=== PATIENT | female | born 1945 | race Caucasian/White ===

== ENCOUNTER 2021-02-02 00:57 | Inpatient (IN) ==
[2021-02-02] MEDS ORDERED: Ipratropium/Albuterol Neb 3 ML IH ONE (01:17)
[2021-02-02 01:44] LABS: Basophils # 0.1 K/mcL (0.0-0.2); Basophils % 0.4 %; Eosinophils % 7.3 %; Hemoglobin 13.3 g/dL (11.5-15.4); Immature Granulocytes % 0.4 % (0-4); Lymphocytes # 1.9 K/mcL (0.6-4.6); Lymphocytes % 13.3 %; Mean Corpuscular HGB Conc 32.4 g/dL (31.6-35.5); Mean Corpuscular Hemoglobin 29.2 pg (28.0-33.3); Mean Corpuscular Volume 89.9 fL (83.0-100.0); Mean Platelet Volume 9.9 fL (9.4-12.4); Monocytes # 0.8 K/mcL (0.0-1.3); Monocytes % 5.8 %; Neutrophils # 10.3 K/mcL (1.6-8.9); Platelet Count 250 K/mcL (140-400); Red Blood Count 4.56 M/mcL (3.82-4.97); Red Cell Distribution Width 13.9 % (11.5-14.5); Segmented Neutrophils % 72.8 %; White Blood Count 14.2 K/mcL (4.3-11.1)
[2021-02-02 02:07] LABS: BUN/Creatinine Ratio 16 (6-26); Blood Urea Nitrogen 17 mg/dL (8-23); Calcium 9.5 mg/dL (8.6-10.3); Carbon Dioxide 26 mEq/L (23-29); Chloride 101 mEq/L (98-107); Glucose 229 mg/dL (70-105); Osmolality,Calculated 297 (280-300); Potassium 3.6 mEq/L (3.5-5.1); Sodium 139 mEq/L (136-145); eGFR For African Americans > 60 (> 60); eGFR For Non-African Americans 51 (> 60)
[2021-02-02 02:08] LABS: Troponin I < 0.03 ng/mL (< 0.04)
[2021-02-02 02:58] LABS: VBG HCO3 27 mEq/L (21-27); VBG PCO2 47 mmHg (41-51); VBG PH 7.36 pH Units (7.32-7.42); VBG PO2 90 mmHg (25-50)
[2021-02-02 03:22] LABS: Influenza A PCR Negative (Negative); Influenza B PCR Negative (Negative); Resp. Syncytial Virus PCR Negative (Negative)
[2021-02-02 03:23] LABS: SARS-CoV-2 by PCR (In House) Negative (Negative)
[2021-02-02] MEDS ORDERED: Azithromycin 500 MG in 0.9 % Sodium Chloride 250 ML IVPB ONE (04:04)
[2021-02-02] MEDS ORDERED: cefTRIAXone 1,000 MG in 0.9 % Sodium Chloride Mini Bag 100 ML IVPB ONE (04:04)
[2021-02-02] MEDS ORDERED: methylPREDNISolone 125 MG/2 ML VIAL IVP ONE (04:04)
[2021-02-02] MEDS ORDERED: Ondansetron 4 MG/2 ML VIAL IVP PRN (05:14)
[2021-02-02] MEDS ORDERED: Naloxone 0.4 MG/ML INJ IVP PRN (05:14)
[2021-02-02] MEDS ORDERED: Dextrose Gel 15 GM/37.5 ML TUBE PO PRN ×2 (06:31)
[2021-02-02] MEDS ORDERED: D5% in Water 1,000 ML IVC PRN (06:31)
[2021-02-02] MEDS ORDERED: *HR* Dextrose 50 % in Water (Vial) 50 ML VIAL IVP PRN (06:31)
[2021-02-02] MEDS ORDERED: Insulin LISPRO 300 UNITS/3 ML VIAL SUBQ SCH (07:00)
[2021-02-02] MEDS ORDERED: Ipratropium/Albuterol Neb 3 ML IH SCH (08:00)
[2021-02-02] MEDS ORDERED: FLUTICASONE PROPIONATE IH SCH (09:00)
[2021-02-02] MEDS ORDERED: NON-FORMULARY MEDICATION 1 EACH EACH (Tiotropium Bromide [Spiriva Handihaler] 18 MCG Cap.W IH SCH (09:00)
[2021-02-02] MEDS: MethylPREDNISolone 40 MG/ML VIAL IVP SCH ×2 (10:12→19:40)
[2021-02-02] MEDS: tiZANidine 4 MG TABLET PO SCH ×2 (10:13→19:40)
[2021-02-02] MEDS: Famotidine 20 MG TABLET PO SCH ×2 (10:13→19:39)
[2021-02-02] MEDS: FLUoxetine 20 MG CAPSULE PO SCH (10:13)
[2021-02-02] MEDS: hydroCHLOROthiazide 25 MG TABLET PO SCH (10:14)
[2021-02-02] MEDS: Gabapentin 300 MG CAPSULE PO SCH ×2 (10:14→19:40)
[2021-02-02] MEDS ORDERED: Ipratropium/Albuterol Neb 3 ML IH PRN (10:30)
[2021-02-02] MEDS ORDERED: MethylPREDNISolone 40 MG/ML VIAL IVP SCH (12:00)
[2021-02-02] MEDS: Tiotropium 10 INH DOSE IH SCH (12:14)
[2021-02-02] MEDS: Insulin LISPRO 300 UNITS/3 ML VIAL SUBQ SCH ×2 (13:50→17:38)
[2021-02-02] MEDS: Ipratropium/Albuterol Neb 3 ML IH SCH ×2 (15:37→21:47)
[2021-02-02] MEDS ORDERED: traZODone 50 MG TABLET PO PRN (21:00)
[2021-02-03 01:40] LABS: Hematocrit 39.7 % (35.3-44.9); Hemoglobin 12.9 g/dL (11.5-15.4); Mean Corpuscular HGB Conc 32.5 g/dL (31.6-35.5); Mean Corpuscular Hemoglobin 29.2 pg (28.0-33.3); Mean Corpuscular Volume 89.8 fL (83.0-100.0); Mean Platelet Volume 10.5 fL (9.4-12.4); Platelet Count 252 K/mcL (140-400); Red Blood Count 4.42 M/mcL (3.82-4.97); Red Cell Distribution Width 13.9 % (11.5-14.5); White Blood Count 11.5 K/mcL (4.3-11.1)
[2021-02-03 01:54] LABS: BUN/Creatinine Ratio 20 (6-26); Blood Urea Nitrogen 17 mg/dL (8-23); Carbon Dioxide 25 mEq/L (23-29); Chloride 101 mEq/L (98-107); Glucose 288 mg/dL (70-105); Osmolality,Calculated 292 (280-300); Potassium 4.1 mEq/L (3.5-5.1); Sodium 135 mEq/L (136-145); eGFR For African Americans > 60 (> 60); eGFR For Non-African Americans > 60 (> 60)
[2021-02-03] MEDS: Ipratropium/Albuterol Neb 3 ML IH SCH ×4 (03:59→20:30)
[2021-02-03] MEDS: Azithromycin 500 MG in 0.9 % Sodium Chloride 250 ML IVPB SCH (05:16)
[2021-02-03] MEDS: Benzonatate 100 MG CAPSULE PO PRN ×2 (06:06→13:12)
[2021-02-03] MEDS: Insulin LISPRO 300 UNITS/3 ML VIAL SUBQ SCH ×3 (08:30→17:26)
[2021-02-03] MEDS: Tiotropium 10 INH DOSE IH SCH (09:58)
[2021-02-03] MEDS: MethylPREDNISolone 40 MG/ML VIAL IVP SCH ×2 (13:09→22:38)
[2021-02-03] MEDS: Famotidine 20 MG TABLET PO SCH ×2 (13:11→22:39)
[2021-02-03] MEDS: tiZANidine 4 MG TABLET PO SCH ×2 (13:12→22:39)
[2021-02-03] MEDS: hydroCHLOROthiazide 25 MG TABLET PO SCH (13:13)
[2021-02-03] MEDS: Gabapentin 300 MG CAPSULE PO SCH ×2 (13:13→22:39)
[2021-02-03] MEDS: FLUoxetine 20 MG CAPSULE PO SCH (13:13)
[2021-02-03] MEDS: Insulin DETEMIR 100 UNIT/ML X5UNITS SUBQ SCH (22:39)
[2021-02-04 01:28] LABS: Basophils % 0.1 %; Hematocrit 39.1 % (35.3-44.9); Hemoglobin 12.8 g/dL (11.5-15.4); Immature Granulocytes % 0.6 % (0-4); Lymphocytes # 1.1 K/mcL (0.6-4.6); Lymphocytes % 7.2 %; Mean Corpuscular HGB Conc 32.7 g/dL (31.6-35.5); Mean Corpuscular Hemoglobin 28.8 pg (28.0-33.3); Mean Corpuscular Volume 87.9 fL (83.0-100.0); Mean Platelet Volume 10.4 fL (9.4-12.4); Monocytes # 0.3 K/mcL (0.0-1.3); Monocytes % 2.1 %; Neutrophils # 13.2 K/mcL (1.6-8.9); Platelet Count 258 K/mcL (140-400); Red Blood Count 4.45 M/mcL (3.82-4.97); White Blood Count 14.7 K/mcL (4.3-11.1)
[2021-02-04 03:22] LABS: BUN/Creatinine Ratio 21 (6-26); Blood Urea Nitrogen 23 mg/dL (8-23); Carbon Dioxide 18 mEq/L (23-29); Chloride 99 mEq/L (98-107); Glucose 279 mg/dL (70-105); Osmolality,Calculated 288 (280-300); Potassium 4.4 mEq/L (3.5-5.1); Sodium 132 mEq/L (136-145); eGFR For African Americans > 60 (> 60); eGFR For Non-African Americans 50 (> 60)
[2021-02-04] MEDS: Ipratropium/Albuterol Neb 3 ML IH SCH ×4 (03:22→21:40)
[2021-02-04] MEDS: Azithromycin 500 MG in 0.9 % Sodium Chloride 250 ML IVPB SCH (06:07)
[2021-02-04] MEDS: MethylPREDNISolone 40 MG/ML VIAL IVP SCH ×2 (08:26→20:14)
[2021-02-04] MEDS: Famotidine 20 MG TABLET PO SCH ×2 (08:27→20:15)
[2021-02-04] MEDS: hydroCHLOROthiazide 25 MG TABLET PO SCH (08:27)
[2021-02-04] MEDS: Gabapentin 300 MG CAPSULE PO SCH ×2 (08:27→20:25)
[2021-02-04] MEDS: tiZANidine 4 MG TABLET PO SCH ×2 (08:28→20:14)
[2021-02-04] MEDS: FLUoxetine 20 MG CAPSULE PO SCH (08:29)
[2021-02-04] MEDS: Insulin LISPRO 300 UNITS/3 ML VIAL SUBQ SCH ×3 (08:29→17:01)
[2021-02-04] MEDS: Tiotropium 10 INH DOSE IH SCH (08:48)
[2021-02-04] MEDS: Insulin DETEMIR 100 UNIT/ML X5UNITS SUBQ SCH (20:15)
[2021-02-05] MEDS ORDERED: Azithromycin 500 MG VIAL ONE (05:03)
[2021-02-05] MEDS: Ipratropium/Albuterol Neb 3 ML IH SCH ×2 (05:11→09:33)
[2021-02-05] MEDS: Azithromycin 500 MG in 0.9 % Sodium Chloride 250 ML IVPB SCH (05:31)
[2021-02-05 05:36] LABS: Basophils % 0.2 %; Hematocrit 39.8 % (35.3-44.9); Lymphocytes # 1.5 K/mcL (0.6-4.6); Lymphocytes % 11.7 %; Mean Corpuscular HGB Conc 32.7 g/dL (31.6-35.5); Mean Corpuscular Hemoglobin 28.8 pg (28.0-33.3); Mean Corpuscular Volume 88.2 fL (83.0-100.0); Mean Platelet Volume 10.5 fL (9.4-12.4); Monocytes # 0.3 K/mcL (0.0-1.3); Monocytes % 2.6 %; Neutrophils # 10.8 K/mcL (1.6-8.9); Platelet Count 290 K/mcL (140-400); Red Blood Count 4.51 M/mcL (3.82-4.97); Red Cell Distribution Width 13.7 % (11.5-14.5); Segmented Neutrophils % 84.5 %; White Blood Count 12.7 K/mcL (4.3-11.1)
[2021-02-05 05:58] LABS: BUN/Creatinine Ratio 23 (6-26); Blood Urea Nitrogen 24 mg/dL (8-23); Carbon Dioxide 29 mEq/L (23-29); Chloride 98 mEq/L (98-107); Glucose 280 mg/dL (70-105); Osmolality,Calculated 294 (280-300); Potassium 4.2 mEq/L (3.5-5.1); Sodium 135 mEq/L (136-145); eGFR For African Americans > 60 (> 60); eGFR For Non-African Americans 52 (> 60)
[2021-02-05 07:24] VITALS: BP 137/82; PULSE 93; TEMP 97.5; O2SAT 97
[2021-02-05] MEDS ORDERED: predniSONE 20 MG TABLET PO SCH (09:00)
[2021-02-05] MEDS ORDERED: Azithromycin 250 MG TABLET PO SCH (09:00)
[2021-02-05] MEDS: FLUoxetine 20 MG CAPSULE PO SCH (09:23)
[2021-02-05] MEDS: tiZANidine 4 MG TABLET PO SCH (09:24)
[2021-02-05] MEDS: Gabapentin 300 MG CAPSULE PO SCH (09:24)
[2021-02-05] MEDS: Insulin LISPRO 300 UNITS/3 ML VIAL SUBQ SCH (09:24)
[2021-02-05] MEDS: hydroCHLOROthiazide 25 MG TABLET PO SCH (09:24)
[2021-02-05] MEDS: Famotidine 20 MG TABLET PO SCH (09:24)
[2021-02-05] MEDS: MethylPREDNISolone 40 MG/ML VIAL IVP SCH (09:56)
[2021-02-05] MEDS: Tiotropium 10 INH DOSE IH SCH (11:10)
== END 2021-02-05 11:51 | disposition home or self-care (01) | DRG 191 ==
LOC: 3BNU 00:57 → EMEROOARM 00:57 → SUATTDRO 05:15 → 3BNU 05:30
PROVIDERS: ADMIT Internal Medicine; ATTEND Internal Medicine

== ENCOUNTER 2021-07-11 22:57 | Inpatient (IN) ==
[2021-07-11] MEDS ORDERED: Isovue-370 500 ML BOTTLE IVP ONE (23:03)
[2021-07-11] MEDS ORDERED: Ipratropium/Albuterol Neb 3 ML ONE (23:03)
[2021-07-11] MEDS ORDERED: Ipratropium/Albuterol Neb 3 ML IH ONE ×2 (23:03→23:12)
[2021-07-11] MEDS ORDERED: methylPREDNISolone 125 MG/2 ML VIAL IVP ONE (23:03)
[2021-07-11 23:35] LABS: INR 1.1; Prothrombin Time 12.5 Seconds (9.4-12.1)
[2021-07-11 23:38] LABS: Activated Partial Thrombo Time 31.9 Seconds (26.0-36.0)
[2021-07-11 23:49] LABS: BUN/Creatinine Ratio 15 (6-26); Blood Urea Nitrogen 13 mg/dL (8-23); Carbon Dioxide 25 mEq/L (23-29); Chloride 102 mEq/L (98-107); Glucose 173 mg/dL (70-105); Osmolality,Calculated 290 (280-300); Potassium 3.4 mEq/L (3.5-5.1); Sodium 138 mEq/L (136-145); eGFR For African Americans > 60 (> 60); eGFR For Non-African Americans > 60 (> 60)
[2021-07-11 23:50] LABS: Troponin I < 0.03 ng/mL (< 0.04)
[2021-07-11 23:57] LABS: Basophils # 0.1 K/mcL (0.0-0.2); Basophils % 0.4 %; Eosinophils # 0.6 K/mcL (0.0-0.6); Eosinophils % 3.6 %; Hematocrit 42.2 % (35.3-44.9); Hemoglobin 13.5 g/dL (11.5-15.4); Immature Granulocytes % 0.4 % (0-4); Lymphocytes # 3.1 K/mcL (0.6-4.6); Lymphocytes % 19.9 %; Mean Corpuscular Hemoglobin 29.2 pg (28.0-33.3); Mean Corpuscular Volume 91.1 fL (83.0-100.0); Mean Platelet Volume 9.8 fL (9.4-12.4); Monocytes # 0.8 K/mcL (0.0-1.3); Monocytes % 5.3 %; Neutrophils # 11.1 K/mcL (1.6-8.9); Platelet Count 344 K/mcL (140-400); Red Blood Count 4.63 M/mcL (3.82-4.97); Red Cell Distribution Width 14.6 % (11.5-14.5); Segmented Neutrophils % 70.4 %; White Blood Count 15.8 K/mcL (4.3-11.1)
[2021-07-12 00:04] LABS: Influenza A PCR Negative (Negative); Influenza B PCR Negative (Negative); Resp. Syncytial Virus PCR Negative (Negative)
[2021-07-12 00:17] LABS: SARS-CoV-2 by PCR (In House) Negative (Negative)
[2021-07-12 01:19] LABS: ABG Base Excess 1 mEq/L (-2 to 3); ABG HCO3 26 mEq/L (21-27); ABG Oxygen Saturation 97 % (95-98); ABG PCO2 39 mmHg (35-45); ABG PH 7.43 pH Units (7.32-7.45); ABG PO2 88 mmHg (85-104); ABG TCO2 27 mEq/L (20-26); Blood Gas Modality 3LPM
[2021-07-12] MEDS ORDERED: cefTRIAXone 1,000 MG in Water for inj. (sterile) 10 ML IVP ONE (02:15)
[2021-07-12] MEDS ORDERED: Azithromycin 500 MG in 0.9 % Sodium Chloride 250 ML IVPB ONE (02:15)
[2021-07-12] MEDS ORDERED: Acetaminophen 325 MG TABLET PO PRN (03:14)
[2021-07-12] MEDS ORDERED: Ondansetron 4 MG/2 ML VIAL IVP PRN (03:14)
[2021-07-12] MEDS ORDERED: Naloxone 0.4 MG/ML INJ IVP PRN (03:14)
[2021-07-12] MEDS ORDERED: *HR* Dextrose 50 % in Water (Syg) 50 ML SYRINGE IVP PRN (03:20)
[2021-07-12] MEDS ORDERED: Dextrose Gel 15 GM/37.5 ML TUBE PO PRN ×2 (03:20)
[2021-07-12] MEDS ORDERED: D5% in Water 1,000 ML IVC PRN (03:20)
[2021-07-12] MEDS ORDERED: 0.9 % Sodium Chloride 500 ML IVC PRN (03:50)
[2021-07-12] MEDS ORDERED: Ipratropium/Albuterol Neb 3 ML IH PRN (04:00)
[2021-07-12] MEDS ORDERED: Perflutren Lipid Microsphere 1.3 ML in 0.9 % Sodium Chloride 8.7 ML IVP PRN (06:21)
[2021-07-12 07:04] LABS: Basophils % 0.2 %; Eosinophils % 0.1 %; Hemoglobin 12.8 g/dL (11.5-15.4); Immature Granulocytes % 0.7 % (0-4); Lymphocytes # 0.6 K/mcL (0.6-4.6); Lymphocytes % 5.6 %; Mean Corpuscular Hemoglobin 29.1 pg (28.0-33.3); Mean Corpuscular Volume 90.9 fL (83.0-100.0); Monocytes # 0.1 K/mcL (0.0-1.3); Monocytes % 0.7 %; Neutrophils # 9.4 K/mcL (1.6-8.9); Platelet Count 301 K/mcL (140-400); Red Cell Distribution Width 14.7 % (11.5-14.5); Segmented Neutrophils % 92.7 %; White Blood Count 10.2 K/mcL (4.3-11.1)
[2021-07-12 07:32] LABS: Alanine Aminotransferase 9 Units/L (7-52); Albumin 3.9 g/dL (3.5-5.7); Albumin/Globulin Ratio 1.3 (1.1-2.2); Alkaline Phosphatase 68 Units/L (34-104); Aspartate Amino Transferase 13 Units/L (13-39); BUN/Creatinine Ratio 15 (6-26); Bilirubin,Indirect 0.3 mg/dL (0.0-1.0); Bilirubin,Total 0.3 mg/dL (0.3-1.0); Blood Urea Nitrogen 13 mg/dL (8-23); Carbon Dioxide 24 mEq/L (23-29); Chloride 101 mEq/L (98-107); Chol/HDL Ratio 1.9 (0-4.9); Cholesterol 115 mg/dL (< 200); Glucose 297 mg/dL (70-105); HDL Cholesterol 60 mg/dL (40-59); LDL Cholesterol,Calculated 40 mg/dL (< 100); Magnesium 1.7 mg/dL (1.6-2.6); Osmolality,Calculated 295 (280-300); Phosphorous 2.9 mg/dL (2.7-4.5); Potassium 3.5 mEq/L (3.5-5.1); Sodium 137 mEq/L (136-145); Total Protein 6.9 g/dL (6.4-8.9); Triglycerides 74 mg/dL (< 150); Troponin I < 0.03 ng/mL (< 0.04); eGFR For African Americans > 60 (> 60); eGFR For Non-African Americans > 60 (> 60)
[2021-07-12] MEDS: Ipratropium/Albuterol Neb 3 ML IH SCH ×4 (07:37→20:02)
[2021-07-12 07:38] LABS: Thyroid Stimulating Hormone 0.769 mcIU/mL (0.340-5.600)
[2021-07-12] MEDS: *HR* Enoxaparin 40 MG/0.4 ML SYRINGE SQ SCH (09:33)
[2021-07-12] MEDS: MethylPREDNISolone 40 MG/ML VIAL IVP SCH ×2 (09:33→17:22)
[2021-07-12 11:00] LABS: C-Reactive Protein 30 mg/L (Less than 10)
[2021-07-12] MEDS: Budesonide/Formoterol 160/4.5 1 PUFF INH IH SCH ×2 (11:58→20:02)
[2021-07-12] MEDS: Insulin LISPRO 300 UNITS/3 ML VIAL SUBQ SCH ×2 (17:22→20:28)
[2021-07-12] MEDS ORDERED: MethylPREDNISolone 40 MG/ML VIAL IVP SCH (18:00)
[2021-07-12] MEDS: Azithromycin 500 MG in 0.9 % Sodium Chloride 250 ML IVPB SCH (20:16)
[2021-07-12] MEDS ORDERED: traZODone 50 MG TABLET PO PRN (21:40)
[2021-07-12] MEDS: cefTRIAXone 1,000 MG in 0.9 % Sodium Chloride Mini Bag 100 ML IVPB SCH (22:04)
[2021-07-13] MEDS: Ipratropium/Albuterol Neb 3 ML IH SCH ×3 (00:19→07:44)
[2021-07-13] MEDS: MethylPREDNISolone 40 MG/ML VIAL IVP SCH ×4 (00:30→23:55)
[2021-07-13] MEDS: Insulin LISPRO 300 UNITS/3 ML VIAL SUBQ SCH ×4 (07:45→21:29)
[2021-07-13] MEDS: *HR* Enoxaparin 40 MG/0.4 ML SYRINGE SQ SCH (07:47)
[2021-07-13] MEDS: tiZANidine 4 MG TABLET PO SCH ×3 (07:48→21:27)
[2021-07-13] MEDS: FLUoxetine 20 MG CAPSULE PO SCH (07:48)
[2021-07-13] MEDS: Gabapentin 300 MG CAPSULE PO SCH ×2 (07:48→21:27)
[2021-07-13] MEDS ORDERED: 0.9 % Sodium Chloride 500 ML IVC ONE (07:49)
[2021-07-13] MEDS: Ipratropium Neb 0.5 MG NEBULIZER IH SCH ×5 (07:55→23:37)
[2021-07-13] MEDS: Levalbuterol Neb 1.25 MG/3 ML IH SCH ×5 (07:55→23:37)
[2021-07-13] MEDS ORDERED: hydroCHLOROthiazide 25 MG TABLET PO SCH (09:00)
[2021-07-13 10:08] LABS: Basophils % 0.1 %; Hematocrit 40.4 % (35.3-44.9); Immature Granulocytes % 0.7 % (0-4); Lymphocytes # 1.1 K/mcL (0.6-4.6); Lymphocytes % 7.3 %; Mean Corpuscular HGB Conc 32.2 g/dL (31.6-35.5); Mean Corpuscular Hemoglobin 29.3 pg (28.0-33.3); Mean Corpuscular Volume 91.2 fL (83.0-100.0); Mean Platelet Volume 10.1 fL (9.4-12.4); Monocytes # 0.5 K/mcL (0.0-1.3); Monocytes % 3.3 %; Platelet Count 312 K/mcL (140-400); Red Blood Count 4.43 M/mcL (3.82-4.97); Red Cell Distribution Width 15.3 % (11.5-14.5); Segmented Neutrophils % 88.6 %; White Blood Count 14.7 K/mcL (4.3-11.1)
[2021-07-13 10:24] LABS: BUN/Creatinine Ratio 22 (6-26); Blood Urea Nitrogen 20 mg/dL (8-23); Calcium 9.4 mg/dL (8.6-10.3); Carbon Dioxide 23 mEq/L (23-29); Chloride 103 mEq/L (98-107); Glucose 269 mg/dL (70-105); Magnesium 1.9 mg/dL (1.6-2.6); Osmolality,Calculated 294 (280-300); Phosphorous 2.8 mg/dL (2.7-4.5); Potassium 4.4 mEq/L (3.5-5.1); Sodium 136 mEq/L (136-145); eGFR For African Americans > 60 (> 60); eGFR For Non-African Americans > 60 (> 60)
[2021-07-13] MEDS: Budesonide/Formoterol 160/4.5 1 PUFF INH IH SCH ×2 (11:25→20:06)
[2021-07-13] MEDS: Azithromycin 500 MG in 0.9 % Sodium Chloride 250 ML IVPB SCH (21:25)
[2021-07-13] MEDS: cefTRIAXone 1,000 MG in 0.9 % Sodium Chloride Mini Bag 100 ML IVPB SCH (21:25)
[2021-07-13 23:04] LABS: Bilirubin,Urine Negative (Negative); Blood,Urine Negative (Negative); Clarity,Urine Clear (Clear); Color,Urine Light-Yellow (Yellow); Glucose,Urine (UA) 300 mg/dL (Normal); Ketones,Urine Negative (Negative); Leukocyte Esterase,Urine Negative (Negative); Mucus,Urine Few per lpf (None-Few); Nitrite,Urine Negative (Negative); Protein,Urine 30 mg/dL (Neg-Trace); RBC,Urine 0-3 per hpf (0-3); Specific Gravity,Urine > 1.030 (1.010-1.025); Squamous Epithelial Cell,Urine Few per hpf (None-Few); Urobilinogen,Urine Normal (Normal); WBC,Urine 0-3 per hpf (0-3)
[2021-07-14] MEDS: Levalbuterol Neb 1.25 MG/3 ML IH SCH ×6 (03:43→23:20)
[2021-07-14] MEDS: Ipratropium Neb 0.5 MG NEBULIZER IH SCH ×6 (03:43→23:20)
[2021-07-14 04:52] LABS: Hematocrit 37.4 % (35.3-44.9); Hemoglobin 11.8 g/dL (11.5-15.4); Immature Granulocytes % 0.6 % (0-4); Lymphocytes % 8.5 %; Mean Corpuscular HGB Conc 31.6 g/dL (31.6-35.5); Mean Corpuscular Hemoglobin 29.2 pg (28.0-33.3); Mean Corpuscular Volume 92.6 fL (83.0-100.0); Monocytes # 0.2 K/mcL (0.0-1.3); Monocytes % 2.1 %; Neutrophils # 10.2 K/mcL (1.6-8.9); Platelet Count 287 K/mcL (140-400); Red Blood Count 4.04 M/mcL (3.82-4.97); Red Cell Distribution Width 15.4 % (11.5-14.5); Segmented Neutrophils % 88.8 %; White Blood Count 11.5 K/mcL (4.3-11.1)
[2021-07-14 05:10] LABS: BUN/Creatinine Ratio 28 (6-26); Blood Urea Nitrogen 24 mg/dL (8-23); Calcium 8.8 mg/dL (8.6-10.3); Carbon Dioxide 28 mEq/L (23-29); Chloride 102 mEq/L (98-107); Glucose 272 mg/dL (70-105); Magnesium 2.1 mg/dL (1.6-2.6); Osmolality,Calculated 296 (280-300); Phosphorous 3.1 mg/dL (2.7-4.5); Potassium 4.2 mEq/L (3.5-5.1); Sodium 136 mEq/L (136-145); eGFR For African Americans > 60 (> 60); eGFR For Non-African Americans > 60 (> 60)
[2021-07-14] MEDS: Budesonide/Formoterol 160/4.5 1 PUFF INH IH SCH ×2 (07:37→20:09)
[2021-07-14] MEDS: Insulin LISPRO 300 UNITS/3 ML VIAL SUBQ SCH ×4 (07:43→22:38)
[2021-07-14] MEDS: MethylPREDNISolone 40 MG/ML VIAL IVP SCH ×2 (08:19→15:26)
[2021-07-14] MEDS: *HR* Enoxaparin 40 MG/0.4 ML SYRINGE SQ SCH (08:20)
[2021-07-14] MEDS: FLUoxetine 20 MG CAPSULE PO SCH (08:20)
[2021-07-14] MEDS: tiZANidine 4 MG TABLET PO SCH ×3 (08:20→22:18)
[2021-07-14] MEDS: Gabapentin 300 MG CAPSULE PO SCH ×2 (08:21→22:19)
[2021-07-14] MEDS: Azithromycin 500 MG in 0.9 % Sodium Chloride 250 ML IVPB SCH (22:31)
[2021-07-14] MEDS: cefTRIAXone 1,000 MG in 0.9 % Sodium Chloride Mini Bag 100 ML IVPB SCH (22:35)
[2021-07-15] MEDS: MethylPREDNISolone 40 MG/ML VIAL IVP SCH ×3 (00:26→16:57)
[2021-07-15 03:03] LABS: BUN/Creatinine Ratio 26 (6-26); Blood Urea Nitrogen 25 mg/dL (8-23); Calcium 8.7 mg/dL (8.6-10.3); Carbon Dioxide 24 mEq/L (23-29); Chloride 100 mEq/L (98-107); Glucose 268 mg/dL (70-105); Osmolality,Calculated 290 (280-300); Phosphorous 3.1 mg/dL (2.7-4.5); Potassium 4.4 mEq/L (3.5-5.1); Sodium 133 mEq/L (136-145); eGFR For African Americans > 60 (> 60); eGFR For Non-African Americans 57 (> 60)
[2021-07-15 03:41] LABS: Basophils % 0.1 %; Eosinophils % 0.1 %; Hematocrit 39.9 % (35.3-44.9); Hemoglobin 12.7 g/dL (11.5-15.4); Immature Granulocytes % 1.2 % (0-4); Lymphocytes # 0.8 K/mcL (0.6-4.6); Lymphocytes % 8.6 %; Mean Corpuscular HGB Conc 31.8 g/dL (31.6-35.5); Mean Corpuscular Hemoglobin 29.1 pg (28.0-33.3); Mean Corpuscular Volume 91.5 fL (83.0-100.0); Monocytes # 0.3 K/mcL (0.0-1.3); Monocytes % 3.2 %; Neutrophils # 8.5 K/mcL (1.6-8.9); Platelet Count 283 K/mcL (140-400); Red Blood Count 4.36 M/mcL (3.82-4.97); Segmented Neutrophils % 86.8 %; White Blood Count 9.8 K/mcL (4.3-11.1)
[2021-07-15] MEDS: Ipratropium Neb 0.5 MG NEBULIZER IH SCH ×6 (04:02→23:41)
[2021-07-15] MEDS: Levalbuterol Neb 1.25 MG/3 ML IH SCH ×6 (04:02→23:41)
[2021-07-15] MEDS: Budesonide/Formoterol 160/4.5 1 PUFF INH IH SCH ×2 (07:37→20:46)
[2021-07-15] MEDS: Gabapentin 300 MG CAPSULE PO SCH ×2 (08:33→20:04)
[2021-07-15] MEDS: tiZANidine 4 MG TABLET PO SCH (08:33)
[2021-07-15] MEDS: FLUoxetine 20 MG CAPSULE PO SCH (08:33)
[2021-07-15] MEDS: *HR* Enoxaparin 40 MG/0.4 ML SYRINGE SQ SCH (08:33)
[2021-07-15] MEDS: Insulin LISPRO 300 UNITS/3 ML VIAL SUBQ SCH ×4 (08:34→20:46)
[2021-07-15] MEDS ORDERED: tiZANidine 4 MG TABLET PO PRN (14:09)
[2021-07-15] MEDS: Azithromycin 250 MG TABLET PO SCH (20:04)
[2021-07-15] MEDS: cefTRIAXone 1,000 MG in 0.9 % Sodium Chloride Mini Bag 100 ML IVPB SCH (20:05)
[2021-07-16] MEDS: MethylPREDNISolone 40 MG/ML VIAL IVP SCH ×2 (00:28→07:34)
[2021-07-16 01:12] LABS: Basophils % 0.2 %; Hematocrit 38.8 % (35.3-44.9); Hemoglobin 12.4 g/dL (11.5-15.4); Immature Granulocytes % 1.5 % (0-4); Lymphocytes # 0.9 K/mcL (0.6-4.6); Lymphocytes % 8.9 %; Mean Corpuscular Hemoglobin 29.2 pg (28.0-33.3); Mean Corpuscular Volume 91.5 fL (83.0-100.0); Mean Platelet Volume 9.6 fL (9.4-12.4); Monocytes # 0.4 K/mcL (0.0-1.3); Monocytes % 4.2 %; Neutrophils # 8.6 K/mcL (1.6-8.9); Platelet Count 244 K/mcL (140-400); Red Blood Count 4.24 M/mcL (3.82-4.97); Segmented Neutrophils % 85.2 %; White Blood Count 10.1 K/mcL (4.3-11.1)
[2021-07-16 01:31] LABS: BUN/Creatinine Ratio 28 (6-26); Blood Urea Nitrogen 28 mg/dL (8-23); Calcium 8.6 mg/dL (8.6-10.3); Carbon Dioxide 25 mEq/L (23-29); Chloride 98 mEq/L (98-107); Glucose 346 mg/dL (70-105); Osmolality,Calculated 293 (280-300); Phosphorous 2.9 mg/dL (2.7-4.5); Potassium 4.4 mEq/L (3.5-5.1); Sodium 132 mEq/L (136-145); eGFR For African Americans > 60 (> 60); eGFR For Non-African Americans 54 (> 60)
[2021-07-16] MEDS: Ipratropium Neb 0.5 MG NEBULIZER IH SCH ×5 (04:11→20:20)
[2021-07-16] MEDS: Levalbuterol Neb 1.25 MG/3 ML IH SCH ×5 (04:11→20:20)
[2021-07-16] MEDS: Budesonide/Formoterol 160/4.5 1 PUFF INH IH SCH ×2 (07:13→20:20)
[2021-07-16] MEDS: Insulin LISPRO 300 UNITS/3 ML VIAL SUBQ SCH ×4 (07:33→21:41)
[2021-07-16] MEDS: *HR* Enoxaparin 40 MG/0.4 ML SYRINGE SQ SCH (07:34)
[2021-07-16] MEDS: hydroCHLOROthiazide 25 MG TABLET PO SCH (07:34)
[2021-07-16] MEDS: Gabapentin 300 MG CAPSULE PO SCH ×2 (07:35→21:47)
[2021-07-16] MEDS: FLUoxetine 20 MG CAPSULE PO SCH (07:35)
[2021-07-16] MEDS: Azithromycin 250 MG TABLET PO SCH (21:47)
[2021-07-17] MEDS: Levalbuterol Neb 1.25 MG/3 ML IH SCH ×7 (00:20→23:35)
[2021-07-17] MEDS: Ipratropium Neb 0.5 MG NEBULIZER IH SCH ×7 (00:21→23:35)
[2021-07-17 01:54] LABS: Basophils % 0.2 %; Eosinophils % 0.1 %; Hematocrit 40.9 % (35.3-44.9); Hemoglobin 13.7 g/dL (11.5-15.4); Immature Granulocytes % 1.1 % (0-4); Lymphocytes # 3.7 K/mcL (0.6-4.6); Lymphocytes % 21.9 %; Mean Corpuscular HGB Conc 33.5 g/dL (31.6-35.5); Mean Corpuscular Hemoglobin 29.7 pg (28.0-33.3); Mean Corpuscular Volume 88.5 fL (83.0-100.0); Mean Platelet Volume 9.7 fL (9.4-12.4); Monocytes # 1.2 K/mcL (0.0-1.3); Neutrophils # 11.6 K/mcL (1.6-8.9); Platelet Count 317 K/mcL (140-400); Red Blood Count 4.62 M/mcL (3.82-4.97); Red Cell Distribution Width 14.7 % (11.5-14.5); Segmented Neutrophils % 69.7 %
[2021-07-17 01:56] LABS: White Blood Count 16.7 K/mcL (4.3-11.1)
[2021-07-17 02:14] LABS: BUN/Creatinine Ratio 37 (6-26); Blood Urea Nitrogen 31 mg/dL (8-23); Calcium 9.1 mg/dL (8.6-10.3); Carbon Dioxide 27 mEq/L (23-29); Chloride 95 mEq/L (98-107); Glucose 187 mg/dL (70-105); Osmolality,Calculated 285 (280-300); Phosphorous 3.3 mg/dL (2.7-4.5); Potassium 3.9 mEq/L (3.5-5.1); Sodium 132 mEq/L (136-145); eGFR For African Americans > 60 (> 60); eGFR For Non-African Americans > 60 (> 60)
[2021-07-17] MEDS: Budesonide/Formoterol 160/4.5 1 PUFF INH IH SCH ×2 (07:34→20:42)
[2021-07-17] MEDS: Insulin LISPRO 300 UNITS/3 ML VIAL SUBQ SCH ×4 (07:49→20:59)
[2021-07-17] MEDS: predniSONE 20 MG TABLET PO SCH (07:49)
[2021-07-17] MEDS: *HR* Enoxaparin 40 MG/0.4 ML SYRINGE SQ SCH (07:49)
[2021-07-17] MEDS: Gabapentin 300 MG CAPSULE PO SCH ×2 (07:49→21:07)
[2021-07-17] MEDS: hydroCHLOROthiazide 25 MG TABLET PO SCH (07:49)
[2021-07-17] MEDS: FLUoxetine 20 MG CAPSULE PO SCH (07:49)
[2021-07-18 03:34] LABS: Basophils # 0.1 K/mcL (0.0-0.2); Basophils % 0.3 %; Eosinophils % 0.2 %; Hematocrit 40.7 % (35.3-44.9); Hemoglobin 13.2 g/dL (11.5-15.4); Immature Granulocytes % 0.7 % (0-4); Lymphocytes # 2.6 K/mcL (0.6-4.6); Lymphocytes % 14.7 %; Mean Corpuscular HGB Conc 32.4 g/dL (31.6-35.5); Mean Corpuscular Hemoglobin 29.2 pg (28.0-33.3); Mean Platelet Volume 9.6 fL (9.4-12.4); Monocytes # 1.1 K/mcL (0.0-1.3); Monocytes % 6.4 %; Neutrophils # 13.5 K/mcL (1.6-8.9); Platelet Count 286 K/mcL (140-400); Red Blood Count 4.52 M/mcL (3.82-4.97); Segmented Neutrophils % 77.7 %; White Blood Count 17.4 K/mcL (4.3-11.1)
[2021-07-18] MEDS: Levalbuterol Neb 1.25 MG/3 ML IH SCH ×6 (03:45→23:32)
[2021-07-18] MEDS: Ipratropium Neb 0.5 MG NEBULIZER IH SCH ×6 (03:45→23:32)
[2021-07-18 03:47] LABS: BUN/Creatinine Ratio 36 (6-26); Blood Urea Nitrogen 33 mg/dL (8-23); Calcium 8.6 mg/dL (8.6-10.3); Carbon Dioxide 29 mEq/L (23-29); Chloride 96 mEq/L (98-107); Glucose 186 mg/dL (70-105); Osmolality,Calculated 292 (280-300); Potassium 4.2 mEq/L (3.5-5.1); Sodium 135 mEq/L (136-145); eGFR For African Americans > 60 (> 60); eGFR For Non-African Americans > 60 (> 60)
[2021-07-18] MEDS: Budesonide/Formoterol 160/4.5 1 PUFF INH IH SCH ×2 (07:39→20:10)
[2021-07-18] MEDS: predniSONE 20 MG TABLET PO SCH (08:12)
[2021-07-18] MEDS: Insulin LISPRO 300 UNITS/3 ML VIAL SUBQ SCH ×4 (08:12→20:21)
[2021-07-18] MEDS: *HR* Enoxaparin 40 MG/0.4 ML SYRINGE SQ SCH (08:12)
[2021-07-18] MEDS: FLUoxetine 20 MG CAPSULE PO SCH (08:12)
[2021-07-18] MEDS: hydroCHLOROthiazide 25 MG TABLET PO SCH (08:12)
[2021-07-18] MEDS: Gabapentin 300 MG CAPSULE PO SCH ×2 (08:12→20:21)
[2021-07-19 01:39] LABS: Basophils % 0.2 %; Eosinophils % 0.1 %; Hematocrit 41.5 % (35.3-44.9); Hemoglobin 13.3 g/dL (11.5-15.4); Immature Granulocytes % 1.1 % (0-4); Lymphocytes # 1.8 K/mcL (0.6-4.6); Lymphocytes % 9.8 %; Mean Corpuscular Hemoglobin 29.3 pg (28.0-33.3); Mean Corpuscular Volume 91.4 fL (83.0-100.0); Mean Platelet Volume 10.3 fL (9.4-12.4); Monocytes # 0.9 K/mcL (0.0-1.3); Monocytes % 5.1 %; Neutrophils # 14.9 K/mcL (1.6-8.9); Platelet Count 246 K/mcL (140-400); Red Blood Count 4.54 M/mcL (3.82-4.97); Red Cell Distribution Width 15.2 % (11.5-14.5); Segmented Neutrophils % 83.7 %; White Blood Count 17.9 K/mcL (4.3-11.1)
[2021-07-19 02:31] LABS: BUN/Creatinine Ratio 34 (6-26); Blood Urea Nitrogen 34 mg/dL (8-23); Calcium 8.9 mg/dL (8.6-10.3); Carbon Dioxide 23 mEq/L (23-29); Chloride 98 mEq/L (98-107); Glucose 183 mg/dL (70-105); Osmolality,Calculated 288 (280-300); Potassium 4.5 mEq/L (3.5-5.1); Sodium 133 mEq/L (136-145); eGFR For African Americans > 60 (> 60); eGFR For Non-African Americans 54 (> 60)
[2021-07-19] MEDS: Ipratropium Neb 0.5 MG NEBULIZER IH SCH ×6 (04:26→23:48)
[2021-07-19] MEDS: Levalbuterol Neb 1.25 MG/3 ML IH SCH ×6 (04:26→23:48)
[2021-07-19] MEDS: Budesonide/Formoterol 160/4.5 1 PUFF INH IH SCH ×2 (07:19→19:42)
[2021-07-19] MEDS: Gabapentin 300 MG CAPSULE PO SCH ×2 (08:30→20:15)
[2021-07-19] MEDS: FLUoxetine 20 MG CAPSULE PO SCH (08:31)
[2021-07-19] MEDS: hydroCHLOROthiazide 25 MG TABLET PO SCH (08:31)
[2021-07-19] MEDS: predniSONE 20 MG TABLET PO SCH (08:31)
[2021-07-19] MEDS: *HR* Enoxaparin 40 MG/0.4 ML SYRINGE SQ SCH (08:31)
[2021-07-19] MEDS: Insulin LISPRO 300 UNITS/3 ML VIAL SUBQ SCH ×4 (08:31→20:16)
[2021-07-19] MEDS ORDERED: Nitroglycerin 0.4 MG TAB.SUBL SL ONE (13:30)
[2021-07-19] MEDS ORDERED: Aspirin 81 MG TAB.CHEW PO ONE (13:47)
[2021-07-19 17:37] LABS: Influenza A PCR Negative (Negative); Influenza B PCR Negative (Negative); Resp. Syncytial Virus PCR Negative (Negative)
[2021-07-19 17:42] LABS: SARS-CoV-2 by PCR (In House) Negative (Negative)
[2021-07-19] MEDS ORDERED: Nitroglycerin 0.4 MG TAB.SUBL SL PRN (20:16)
[2021-07-20 00:30] VITALS: BP 134/79; PULSE 97; TEMP 97.6; O2SAT 100
== END 2021-07-20 03:00 | DRG 871 ==
LOC: 2ANU 22:57 → EMEROOARM 22:57 → SUATTDRO 07-12 03:24 → 2ANU 07-12 05:00
PROVIDERS: ADMIT Internal Medicine; ATTEND Internal Medicine